=== PATIENT | female | born 1980 | race Caucasian/White ===

== ENCOUNTER 2016-11-19 13:06 | Emergency (ER) | payer BC ==
[~2016-11-19] VITALS: Wt 75.0 kg
[~2016-11-19 13:06] MED LIST: METH4TAB10 PO; OMEP40CA6 PO
[2016-11-19] MEDS ORDERED: HYDR-906 PO (13:30)
[2016-11-19] MEDS ORDERED: CEPH-443 PO (13:30)
[2016-11-19] MEDS ORDERED: SULF1TAB31 PO (13:30)
--- NOTE | 2016-11-19 13:58 | ERD ---
ER Documentation Chief Complaint Date/Time DATE: 11/19/16 TIME: 13:56 Chief Complaint abscess to left thigh x 4 days HPI Patient is a 36-year-old female with previous abscess who presents with an infection to her left leg. She said that it started 4 days ago as a pimple but has gotten bigger. Last night she had subjective fever. She took 1 pill of Keflex that her had from a previous infection. He pushed on her leg last night and was only able to express some blood without any pus. The patient 's primary doctor is Dr. Hurst. ROS All systems reviewed and are negative except as per history of present illness. Medications Home Meds Active Scripts Hydrocodone/Acetaminophen ([place] 5-325 Tablet) 1 Each Tablet, 1 TAB PO Q6H Y for PAIN, #7 TAB Prov:JOEL SOLIS MD 11/19/16 Sulfamethoxazole/Trimethoprim* (Bactrim Ds* Tablet) 1 Each Tablet, 1 TAB PO BID , #14 TAB Prov:JOEL SOLIS MD 11/19/16 Cephalexin* (Keflex*) 500 Mg Capsule, 500 MG PO QID for 7 Days, CAP Prov:JOEL SOLIS MD 11/19/16 Reported Medications Omeprazole* (Omeprazole*) 40 Mg Capsule.dr, 40 MG PO DAILY, CAP 02/22/14 Methylprednisolone* (Methylprednisolone*) 4 Mg/Bottle Tab.ds.pk, 4 MG PO DAILY, TAB 02/22/14 Allergies Allergies: Coded Allergies: No Known Allergy (Unverified , 02/22/14) PMhx/Soc History of Surgery: Yes (C SECTION X1) Anesthesia Reaction: No Hx Neurological Disorder: No Hx Respiratory Disorders: No Hx Cardiac Disorders: No Hx Psychiatric Problems: No Hx Miscellaneous Medical Probl: Yes (LUPUS) Hx Alcohol Use: No Hx Substance Use: No Hx Tobacco Use: No FmHx Family History: No diabetes Physical Exam Vitals Vital Signs Date Time Temp Pulse Resp B/P Pulse Ox O2 Delivery O2 Flow Rate FiO2 11/19/16 13:10 98.7 103 18 121/81 96 Physical Exam Const: Mild distress secondary to pain Head: Atraumatic Eyes: Normal Conjunctiva ENT: Normal External Ears, Nose and Mouth. Neck: Full range of motion..~ No meningismus. Resp: Clear to auscultation bilaterally Cardio: Regular rate and rhythm, no murmurs Abd: Soft, non tender, non distended. Normal bowel sounds Skin: Left buttock cellulitis with induration, there is a small area of opening in the middle but there is no induration to suggest pus filled abscess Back: No midline or flank tenderness Ext: No cyanosis, or edema Neur: Awake and alert Psych: Normal Mood and Affect Procedures/MDM Patient is a 36-year-old female who presents with what was most likely a small abscess with surrounding cellulitis. I do not believe she requires incision and drainage at this time as there is no obvious fluctuance. The patient will be given a prescription for Keflex and Bactrim that she can take for 1 week. She can return for any worsening symptoms. The patient will be given a short course of [place] for pain as she says that the area is tender and she is having difficulty sitting down because of the pain. I doubt sepsis or systemic infection and I believe outpatient management is appropriate. Departure Diagnosis: Primary Impression: Cellulitis Site of cellulitis: buttock Qualified Code: L03.317 - Cellulitis of buttock Additional Impression: Abscess Condition: Fair Patient Instructions: Cellulitis, Abscess, Antiobiotic Treatment Only Additional Instructions: Call your primary care doctor TOMORROW for an appointment during the next 1-2 days.See the doctor sooner or return here if your condition worsens before your appointment time. JOEL SOLIS MD Nov 19, 2016 13:58
== END 2016-11-19 13:40 | disposition home or self-care (01) ==
LOC: FTE 13:06
DX: L03.317 Cellulitis of buttock (principal)
CPT/HCPCS: 99284